=== PATIENT | female | born 1985 | race Caucasian/White ===

== ENCOUNTER 2020-07-20 18:25 | Emergency (ER) | payer OTHER ==
[2020-07-20 20:00] LABS: HEMOGLOBIN 12.5 gm/dl (12.3-15.3); RED BLOOD COUNT 4.3 M/UL (4.00-5.10)
[2020-07-20 20:17] LABS: BUN/CREATININE RATIO 14 (0-10)
== END 2020-07-20 21:07 | disposition home or self-care (01) ==
LOC: ER1 18:25
PROVIDERS: Emergency Medicine
DX: R20.2 Paresthesia of skin (principal)
CPT/HCPCS: 36415; 70450; 72125; 80053; 84703; 85025; 85652; 86140; 99284